=== PATIENT | male | born 1955 | race Caucasian/White ===

== ENCOUNTER 2016-10-25 22:42 | Emergency (ER) | payer OTHER ==
[~2016-10-25] VITALS: Ht 177.8 cm; Wt 87.4 kg
[~2016-10-25 22:42] MED LIST: AMOXICILLIN500 M1 PO; B-121000 MC2 PO; CIPRO500 MG PO; CYANOCOBALAM1000 MCG PO; DILAUDID4 MG PO; DOCUSATE SODIU100 MG PO; HYDROMORPHONE HC4 MG PO; IRON325 M1 PO; KEFLEX500 MG PO; LORZONE750 MG PO; LOVENOX40 MG/0.4 SC; MAGNESIUM250 MG PO; MOVANTIK25 MG PO; NEURONTIN600 MG PO; NOHOMEMEDS; NORCO 10/3251 TABLET PO; PARAFON FORTE500 MG PO; PERCOCET 5/31 TABLET PO; SENNA8.6 MG PO; TRAMADOL HCL50 MG PO; TYLENOL REGULA325 MG PO; VITAMIN B12-FO1 EACH PO; ZOFRAN4 MG PO
[2016-10-25 22:55] LABS: ADD MIUA? YES; BILIRUBIN NEGATIVE; BLOOD MODERATE; COLOR YELLOW ((YELLOW)); GLUCOSE (STRIP) NEGATIVE; KETONES NEGATIVE; LEUKOCYTES LARGE; NITRITE POSITIVE; PROTEIN (STRIP) 30; SPECIFIC GRAVITY 1.016 (1.000-1.030)
[2016-10-25 23:25] LABS: EPITHELIAL CELLS RARE; RED BLOOD CELLS 15-20 /HPF (0-5); WHITE BLOOD CELLS 40-50 /HPF (0-5)
[2016-10-25 23:26] LABS: BACTERIA 2+; CASTS NONE SEEN /LPF; CRYSTALS NONE SEEN; MUCUS NONE SEEN; UCUL ADDED? YES
[2016-10-26 00:32] LABS: HEMATOCRIT 42.2 % (38.0-50.0); MCH 32.3 PG (29.0-34.0); MCHC 35.5 G/DL (30.0-36.0); MCV 90.9 FL (86-99); RBC DIS.WIDTH-CV 12.8 % (11.8-14.6); RED BLOOD COUNT 4.64 M/uL (4.00-5.50); WHITE BLOOD COUNT 9.4 K/uL (4.1-10.2)
[2016-10-26 00:33] LABS: MEAN PLAT.VOLUME 11.6 uM^3 (9.0-12.4); PLATELET COUNT 157 K/uL (156-360)
[2016-10-26 01:01] LABS: CHLORIDE 104 mEq/L (99-109); POTASSIUM 4.1 mEq/L (3.7-5.4); SODIUM 139 mEq/L (136-147)
[2016-10-26 01:03] LABS: GLUCOSE 107 mg/dL (70-99)
[2016-10-26 01:05] LABS: ANION GAP 10 MEQ/L (2-14)
[2016-10-26 01:07] LABS: GFR ESTIMATE (CALCULATED) > 59 mL/min/
[2016-10-26 01:08] LABS: UREA NITROGEN (BUN) 18 mg/dL (9-23)
[2016-10-26] MEDS ORDERED: KEFLEX500 MG PO (01:55)
[2016-10-26 02:37] VITALS: BP 148/98
== END 2016-10-26 02:37 | disposition home or self-care (01) ==
LOC: EME 22:42
PROVIDERS: Emergency Medicine
DX: N10 Acute pyelonephritis (principal); R11.2 Nausea with vomiting, unspecified; G89.29 Other chronic pain; Z79.891 Long term (current) use of opiate analgesic; Z87.891 Personal history of nicotine dependence
CPT/HCPCS: 74176; 80048; 81003; 83605; 85027; 87077; 87086; 87186; 99281; 99284; J0696; J1885; J2270; J2405; J7030; J7050

== ENCOUNTER → 2016-10-31 | Outpatient (CLI) | payer OTHER | END | disposition home or self-care (01) | LOC: RAD 10-23 09:30 | DX: N39.0 Urinary tract infection, site not specified (principal); N12 Tubulo-interstitial nephritis, not specified as acute or chronic | CPT/HCPCS: 74177 ==

== ENCOUNTER 2017-10-04 06:26 | Emergency (ER) | payer OTHER ==
[~2017-10-04] VITALS: Ht 177.8 cm; Wt 91.7 kg
[2017-10-04 07:34] LABS: HEMATOCRIT 38.1 % (38.0-50.0); HEMOGLOBIN 13.1 G/DL (12.5-16.6); MCH 31.9 PG (29.0-34.0); MCHC 34.4 G/DL (30.0-36.0); MCV 92.7 FL (86-99); PLATELET COUNT 182 K/uL (156-360); RBC DIS.WIDTH-CV 12.4 % (11.8-14.6); RBC DIS.WIDTH-SD 42.6 % (39-53); RED BLOOD COUNT 4.11 M/uL (4.00-5.50); WHITE BLOOD COUNT 8.2 K/uL (4.1-10.2)
[2017-10-04 07:59] LABS: APPEARANCE TURBID ((CLEAR)); BILIRUBIN NEGATIVE; BLOOD LARGE; COLOR AMBER ((YELLOW)); GLUCOSE (STRIP) NEGATIVE; KETONES NEGATIVE; LEUKOCYTES MODERATE; NITRITE POSITIVE; PROTEIN (STRIP) 100; SPECIFIC GRAVITY 1.011 (1.000-1.030); UROBILINOGEN 0.2 MG/DL (0.2-1.0)
[2017-10-04] MEDS ORDERED: LEVAQUIN750 MG PO (08:15)
[2017-10-04 08:20] LABS: CHLORIDE 102 MEQ/L (99-109); GFR ESTIMATE (CALCULATED) > 59 mL/min/ (58.99-99999); GLUCOSE 112 mg/dL (70-99); POTASSIUM 4.1 MEQ/L (3.7-5.4); SODIUM 138 MEQ/L (136-147); UREA NITROGEN (BUN) 21 mg/dL (9-23)
[2017-10-04 08:31] LABS: BACTERIA 2+ /HPF; EPITHELIAL CELLS 1+ /HPF; MUCUS NONE SEEN /LPF; RED BLOOD CELLS TNTC /HPF (0-5); UCUL ADDED? YES; WHITE BLOOD CELLS TNTC /HPF (0-5)
[2017-10-04 08:34] VITALS: BP 149/97
== END 2017-10-04 08:35 | disposition home or self-care (01) ==
LOC: EME 06:26
PROVIDERS: Emergency Medicine
DX: N30.01 Acute cystitis with hematuria (principal); N10 Acute pyelonephritis; G89.29 Other chronic pain; M54.5 Low back pain; I10 Essential (primary) hypertension; Z87.891 Personal history of nicotine dependence; Z93.6 Other artificial openings of urinary tract status; Z98.84 Bariatric surgery status; Z87.442 Personal history of urinary calculi; Z85.51 Personal history of malignant neoplasm of bladder; Z90.79 Acquired absence of other genital organ(s); Z90.6 Acquired absence of other parts of urinary tract
CPT/HCPCS: 74176; 80048; 81003; 85027; 87077; 87086; 87186; 99281; 99285; J1885; J2405; J7030

== ENCOUNTER → 2017-10-31 | Outpatient (CLI) | payer OTHER ==
[~2017-10-31] MED LIST changes: +LEVAQUIN750 MG PO
== END | disposition home or self-care (01) ==
LOC: RAD 08:33
DX: N20.0 Calculus of kidney (principal); N13.30 Unspecified hydronephrosis
CPT/HCPCS: 76770

== ENCOUNTER → 2017-11-13 | Outpatient (CLI) | payer OTHER ==
[2017-11-13 08:50] LABS: HEMATOCRIT 36.6 % (38.0-50.0); HEMOGLOBIN 12.3 G/DL (12.5-16.6); MCH 30.6 PG (29.0-34.0); MCHC 33.6 G/DL (30.0-36.0); PLATELET COUNT 233 K/uL (156-360); RBC DIS.WIDTH-CV 12.1 % (11.8-14.6); RBC DIS.WIDTH-SD 40.7 % (39-53); RED BLOOD COUNT 4.02 M/uL (4.00-5.50); WHITE BLOOD COUNT 7.9 K/uL (4.1-10.2)
== END | disposition home or self-care (01) ==
LOC: OPR 07:58 → EDSTATUS 09:00 → OPR 09:00
PROVIDERS: Urology
PROC: 0TH53YZ Insertion of Other Device into Kidney, Percutaneous Approach (ICD-10-PCS; principal; 2017-11-13)
DX: N13.30 Unspecified hydronephrosis (principal)
CPT/HCPCS: 50432; 85027; 87086; C1729; C1766; C1894; J0744; J2250; J2310; J2405; J3010

== ENCOUNTER → 2017-11-19 | Outpatient (CLI) | payer OTHER | END | disposition home or self-care (01) | LOC: RAD 10:00 | DX: R31.9 Hematuria, unspecified (principal); Z93.6 Other artificial openings of urinary tract status; Z93.3 Colostomy status | CPT/HCPCS: 74150 ==

== ENCOUNTER → 2017-12-07 | Outpatient (CLI) | payer OTHER ==
[~2017-12-07] MED LIST changes: +NORCO 5/3251 TABLET PO
[2017-12-07 09:01] LABS: INTER. NORMALIZED RATIO 1.1
== END | disposition home or self-care (01) ==
LOC: OPR 08:29 → EDSTATUS 09:00 → OPR 09:00
PROVIDERS: Urology
DX: N13.5 Crossing vessel and stricture of ureter without hydronephrosis (principal); Z90.6 Acquired absence of other parts of urinary tract
CPT/HCPCS: 50434; 85610; 85730; C1725; C1766; C1769; J3010

== ENCOUNTER 2017-12-10 08:32 | Inpatient (IN) | payer OTHER ==
[~2017-12-10] VITALS: Ht 179.1 cm; Wt 86.5 kg
[2017-12-10 09:25] LABS: BASOPHIL (%) 0.8 % (0-1); BASOPHIL COUNT 0.1 K/uL (0-0.1); EOSINOPHIL (%) 8.2 % (0-5); EOSINOPHIL COUNT 0.7 K/uL (0-0.3); HEMATOCRIT 36.7 % (38.0-50.0); HEMOGLOBIN 12.5 G/DL (12.5-16.6); IMMATURE GRANULOCYTE (%) 0.4 % (0.0-0.7); LYMPHOCYTE (%) 10.5 % (15-42); LYMPHOCYTE COUNT 0.9 K/uL (1.0-2.8); MCH 31.2 PG (29.0-34.0); MCHC 34.1 G/DL (30.0-36.0); MCV 91.5 FL (86-99); MONOCYTE (%) 8.7 % (3-12); MONOCYTE COUNT 0.7 K/uL (0-0.8); NEUTROPHIL (%) 71.4 % (45-76); NEUTROPHIL COUNT 6.1 K/uL (1.8-6.4); PLATELET COUNT 229 K/uL (156-360); RBC DIS.WIDTH-CV 13.6 % (11.8-14.6); RBC DIS.WIDTH-SD 45.1 % (39-53); RED BLOOD COUNT 4.01 M/uL (4.00-5.50); WHITE BLOOD COUNT 8.6 K/uL (4.1-10.2)
[2017-12-10 09:34] LABS: ALBUMIN 3.9 g/dL (3.2-4.8); CHLORIDE 104 mEq/L (99-109); POTASSIUM 4.7 mEq/L (3.7-5.4); SODIUM 140 mEq/L (136-147)
[2017-12-10 09:36] LABS: GLUCOSE 102 mg/dL (70-99)
[2017-12-10 09:37] LABS: TOTAL PROTEIN 7.2 g/dL (6.4-8.3)
[2017-12-10 09:38] LABS: TOTAL BILIRUBIN 0.7 mg/dL (0.0-1.0)
[2017-12-10 09:40] LABS: ALKALINE PHOSPHATASE 183 IU/L (3-129); CREATININE 1.2 mg/dL (0.6-1.3); GFR ESTIMATE (CALCULATED) > 59 mL/min/ (58.99-99999)
[2017-12-10 09:41] LABS: UREA NITROGEN (BUN) 18 mg/dL (9-23)
[2017-12-10 09:42] LABS: AST (GOT) 19 IU/L (2-34)
[2017-12-10 09:43] LABS: ALT (GPT) 11 IU/L (3-49); LIPASE 33 U/L (1.0-51.0)
[2017-12-10 09:47] LABS: TROP-I INTERPRETATION NEGATIVE; TROPONIN-I < 0.01 ng/mL (0.0-0.30)
[2017-12-10 16:10] VITALS: BP 138/71
[2017-12-10 17:07] LABS: APPEARANCE SL.HAZY ((CLEAR)); BILIRUBIN NEGATIVE; BLOOD MODERATE; COLOR YELLOW ((YELLOW)); GLUCOSE (STRIP) NEGATIVE; KETONES NEGATIVE; LEUKOCYTES LARGE; NITRITE POSITIVE; PROTEIN (STRIP) 100; SPECIFIC GRAVITY 1.025 (1.000-1.030); UROBILINOGEN 0.2 MG/DL (0.2-1.0)
[2017-12-10 17:30] LABS: RED BLOOD CELLS 30-40 /HPF (0-5)
[2017-12-10 17:31] LABS: EPITHELIAL CELLS 1+ /HPF; WHITE BLOOD CELLS 15-20 /HPF (0-5)
[2017-12-10 17:32] LABS: BACTERIA 3+ /HPF; MUCUS NONE SEEN /LPF
[2017-12-10 23:26] VITALS: BP 120/65
[2017-12-11 06:04] LABS: HEMATOCRIT 33.8 % (38.0-50.0); HEMOGLOBIN 11.3 G/DL (12.5-16.6); MCH 30.4 PG (29.0-34.0); MCHC 33.4 G/DL (30.0-36.0); MCV 90.9 FL (86-99); PLATELET COUNT 208 K/uL (156-360); RBC DIS.WIDTH-CV 13.5 % (11.8-14.6); RBC DIS.WIDTH-SD 44.9 % (39-53); RED BLOOD COUNT 3.72 M/uL (4.00-5.50); WHITE BLOOD COUNT 7.6 K/uL (4.1-10.2)
[2017-12-11 06:27] LABS: CHLORIDE 104 MEQ/L (99-109); CREATININE 1.2 MG/DL (0.6-1.3); GFR ESTIMATE (CALCULATED) > 59 mL/min/ (58.99-99999); GLUCOSE 97 mg/dL (70-99); POTASSIUM 4.4 MEQ/L (3.7-5.4); SODIUM 138 MEQ/L (136-147); UREA NITROGEN (BUN) 21 mg/dL (9-23)
[2017-12-11 08:03] VITALS: BP 126/83
[2017-12-11 09:09] LABS: INTER. NORMALIZED RATIO 1.1
[2017-12-11 09:12] LABS: PTT 29.4 SEC (25-37)
[2017-12-11 14:48] VITALS: BP 138/74
[2017-12-12 00:05] VITALS: BP 131/80
[2017-12-12 06:05] LABS: HEMATOCRIT 33.6 % (38.0-50.0); HEMOGLOBIN 11.4 G/DL (12.5-16.6); MCH 31.1 PG (29.0-34.0); MCHC 33.9 G/DL (30.0-36.0); MCV 91.6 FL (86-99); PLATELET COUNT 193 K/uL (156-360); RBC DIS.WIDTH-CV 13.6 % (11.8-14.6); RBC DIS.WIDTH-SD 45.4 % (39-53); RED BLOOD COUNT 3.67 M/uL (4.00-5.50); WHITE BLOOD COUNT 7.7 K/uL (4.1-10.2)
[2017-12-12 06:31] LABS: CHLORIDE 103 MEQ/L (99-109); CREATININE 1.1 MG/DL (0.6-1.3); GFR ESTIMATE (CALCULATED) > 59 mL/min/ (58.99-99999); GLUCOSE 95 mg/dL (70-99); POTASSIUM 4.5 MEQ/L (3.7-5.4); SODIUM 138 MEQ/L (136-147); UREA NITROGEN (BUN) 18 mg/dL (9-23)
[2017-12-12 07:30] VITALS: BP 131/85
[2017-12-12] MEDS ORDERED: ZOFRAN4 MG PO (08:14)
[2017-12-12 16:50] VITALS: BP 127/85
== END 2017-12-12 19:25 | disposition home or self-care (01) | DRG 436 ==
LOC: EME 08:32 → EDOF 13:52 → 5EAST 13:52 → ENRESERV 13:59 → 5EAST 16:07 → ENPENDDIS 12-12 → 5EAST 12-12 19:25
PROVIDERS: Emergency Medicine; Internal Medicine
PROC: 0FB23ZX Excision of Left Lobe Liver, Percutaneous Approach, Diagnostic (ICD-10-PCS; principal; 2017-12-11)
DX: C78.7 Secondary malignant neoplasm of liver and intrahepatic bile duct (principal); C67.9 Malignant neoplasm of bladder, unspecified; C77.9 Secondary and unspecified malignant neoplasm of lymph node, unspecified; N20.0 Calculus of kidney; N13.5 Crossing vessel and stricture of ureter without hydronephrosis; E11.9 Type 2 diabetes mellitus without complications; G89.29 Other chronic pain; I10 Essential (primary) hypertension; Z90.79 Acquired absence of other genital organ(s); Z90.6 Acquired absence of other parts of urinary tract; Z87.891 Personal history of nicotine dependence; Z87.442 Personal history of urinary calculi; Z85.51 Personal history of malignant neoplasm of bladder; Z93.6 Other artificial openings of urinary tract status; Z98.84 Bariatric surgery status; Z81.1 Family history of alcohol abuse and dependence; Z80.0 Family history of malignant neoplasm of digestive organs; R31.0 Gross hematuria; R16.0 Hepatomegaly, not elsewhere classified; R59.0 Localized enlarged lymph nodes
CPT/HCPCS: 74022; 74177; 77012; 78582; 80048; 80053; 81003; 83690; 83880; 84484; 85025; 85027; 85379; 85610; 85730; 87086; 88305; 88341 TC; 88342 TC; 93005; 99281; 99285; A9540; A9567; J1644; J2250; J2270; J2310; J2405; J3010; J7030

== ENCOUNTER 2017-12-20 20:25 | Inpatient (IN) | payer OTHER ==
[~2017-12-20] VITALS: Ht 179.1 cm; Wt 88.7 kg
[2017-12-20 21:05] LABS: HEMATOCRIT 36.7 % (38.0-50.0); HEMOGLOBIN 12.8 G/DL (12.5-16.6); MCH 31.1 PG (29.0-34.0); MCHC 34.9 G/DL (30.0-36.0); PLATELET COUNT 235 K/uL (156-360); RBC DIS.WIDTH-CV 13.1 % (11.8-14.6); RED BLOOD COUNT 4.12 M/uL (4.00-5.50); WHITE BLOOD COUNT 18.1 K/uL (4.1-10.2)
[2017-12-20 21:07] LABS: MCV 89.1 FL (86-99)
[2017-12-20 21:14] LABS: CHLORIDE 102 mEq/L (99-109); POTASSIUM 4.2 mEq/L (3.7-5.4); SODIUM 137 mEq/L (136-147)
[2017-12-20 21:16] LABS: GLUCOSE 140 mg/dL (70-99)
[2017-12-20 21:20] LABS: GFR ESTIMATE (CALCULATED) 41 mL/min/ (58.99-99999)
[2017-12-20 21:21] LABS: CREATININE 1.8 mg/dL (0.6-1.3); UREA NITROGEN (BUN) 26 mg/dL (9-23)
[2017-12-20 21:28] LABS: TROP-I INTERPRETATION NEGATIVE; TROPONIN-I 0.12 ng/mL (0.0-0.30)
[2017-12-20 23:00] LABS: BASOPHIL (%) 0.4 % (0-1); BASOPHIL COUNT 0.1 K/uL (0-0.1); EOSINOPHIL (%) 0.3 % (0-5); EOSINOPHIL COUNT 0.1 K/uL (0-0.3); IMMATURE GRANULOCYTE (%) 0.8 % (0.0-0.7); LYMPHOCYTE (%) 1.4 % (15-42); LYMPHOCYTE COUNT 0.3 K/uL (1.0-2.8); MONOCYTE (%) 7.5 % (3-12); MONOCYTE COUNT 1.4 K/uL (0-0.8); NEUTROPHIL (%) 89.6 % (45-76); NEUTROPHIL COUNT 16.2 K/uL (1.8-6.4)
[2017-12-21] MEDS ORDERED: ZOFRAN4 MG PO (00:01)
[2017-12-21] MEDS ORDERED: IRON325 M1 PO (00:02)
[2017-12-21] MEDS ORDERED: PROTONIX40 MG PO (00:02)
[2017-12-21] MEDS ORDERED: CYANOCOBALAM1000 MCG PO (00:02)
[2017-12-21 00:25] LABS: INTER. NORMALIZED RATIO 1.2
[2017-12-21 03:18] VITALS: BP 109/62
[2017-12-21 04:08] LABS: TROP-I INTERPRETATION NEGATIVE; TROPONIN-I 0.08 ng/mL (0.0-0.30)
[2017-12-21 07:44] VITALS: BP 97/65
[2017-12-21 10:06] LABS: TROP-I INTERPRETATION NEGATIVE; TROPONIN-I 0.05 ng/mL (0.0-0.30)
[2017-12-21 10:46] VITALS: BP 97/63
[2017-12-21 12:11] LABS: CHLORIDE 104 MEQ/L (99-109); CREATININE 1.7 MG/DL (0.6-1.3); GFR ESTIMATE (CALCULATED) 44 mL/min/ (58.99-99999); POTASSIUM 4.7 MEQ/L (3.7-5.4); SODIUM 137 MEQ/L (136-147); UREA NITROGEN (BUN) 28 mg/dL (9-23)
[2017-12-21 12:12] LABS: GLUCOSE 93 mg/dL (70-99)
[2017-12-21 13:49] LABS: APPEARANCE SL.HAZY ((CLEAR)); BILIRUBIN NEGATIVE; BLOOD LARGE; COLOR YELLOW ((YELLOW)); GLUCOSE (STRIP) NEGATIVE; KETONES NEGATIVE; LEUKOCYTES LARGE; NITRITE NEGATIVE; PROTEIN (STRIP) 30; SPECIFIC GRAVITY 1.012 (1.000-1.030); UROBILINOGEN 0.2 MG/DL (0.2-1.0)
[2017-12-21 14:07] LABS: EPITHELIAL CELLS RARE /HPF; MUCUS NONE SEEN /LPF; RED BLOOD CELLS TNTC /HPF (0-5); WHITE BLOOD CELLS TNTC /HPF (0-5)
[2017-12-21 14:08] LABS: BACTERIA RARE /HPF; UCUL ADDED? YES
[2017-12-21 16:43] VITALS: BP 130/59
[2017-12-21 19:00] VITALS: BP 107/65
[2017-12-22] VITALS (7 sets, daily range): BP systolic 105–134; BP diastolic 64–74
[2017-12-22 06:27] LABS: BASOPHIL (%) 0.4 % (0-1); EOSINOPHIL (%) 2.7 % (0-5); EOSINOPHIL COUNT 0.3 K/uL (0-0.3); HEMATOCRIT 29.2 % (38.0-50.0); HEMOGLOBIN 9.4 G/DL (12.5-16.6); IMMATURE GRANULOCYTE (%) 0.4 % (0.0-0.7); LYMPHOCYTE (%) 5.2 % (15-42); LYMPHOCYTE COUNT 0.5 K/uL (1.0-2.8); MCH 29.9 PG (29.0-34.0); MCHC 32.2 G/DL (30.0-36.0); MONOCYTE (%) 8.8 % (3-12); MONOCYTE COUNT 0.8 K/uL (0-0.8); NEUTROPHIL (%) 82.5 % (45-76); NEUTROPHIL COUNT 7.5 K/uL (1.8-6.4); RBC DIS.WIDTH-CV 13.7 % (11.8-14.6); RBC DIS.WIDTH-SD 47.4 % (39-53); RED BLOOD COUNT 3.14 M/uL (4.00-5.50); WHITE BLOOD COUNT 9.1 K/uL (4.1-10.2)
[2017-12-22 06:38] LABS: CHLORIDE 105 MEQ/L (99-109); CREATININE 1.7 MG/DL (0.6-1.3); GFR ESTIMATE (CALCULATED) 44 mL/min/ (58.99-99999); GLUCOSE 104 mg/dL (70-99); POTASSIUM 4.7 MEQ/L (3.7-5.4); SODIUM 138 MEQ/L (136-147); UREA NITROGEN (BUN) 24 mg/dL (9-23)
[2017-12-22 06:53] LABS: PLAT.SUFFICIENCY ADEQUATE
[2017-12-22 06:54] LABS: PLATELET COUNT 153 K/uL (156-360)
[2017-12-22 09:32] LABS: HEMATOCRIT 28.1 % (38.0-50.0); HEMOGLOBIN 9.2 G/DL (12.5-16.6); MCH 30.5 PG (29.0-34.0); MCHC 32.7 G/DL (30.0-36.0); PLATELET COUNT 142 K/uL (156-360); RBC DIS.WIDTH-CV 13.7 % (11.8-14.6); RBC DIS.WIDTH-SD 46.8 % (39-53); RED BLOOD COUNT 3.02 M/uL (4.00-5.50); WHITE BLOOD COUNT 8.3 K/uL (4.1-10.2)
[2017-12-22 10:10] LABS: CHLORIDE 104 MEQ/L (99-109); CREATININE 1.5 MG/DL (0.6-1.3); GFR ESTIMATE (CALCULATED) 50 mL/min/ (58.99-99999); GLUCOSE 128 mg/dL (70-99); POTASSIUM 3.8 MEQ/L (3.7-5.4); SODIUM 136 MEQ/L (136-147); UREA NITROGEN (BUN) 23 mg/dL (9-23)
[2017-12-23 00:07] VITALS: BP 110/62
[2017-12-23 04:13] VITALS: BP 98/57
[2017-12-23 07:50] VITALS: BP 123/79
[2017-12-23 12:15] VITALS: BP 113/77
[2017-12-23 16:16] VITALS: BP 120/80
[2017-12-24 00:06] VITALS: BP 116/75
[2017-12-24 03:16] VITALS: BP 117/73
[2017-12-24 11:53] VITALS: BP 121/67
[2017-12-24 20:24] VITALS: BP 111/73
[2017-12-25 00:35] VITALS: BP 128/77
[2017-12-25 03:52] VITALS: BP 126/73
[2017-12-25 06:05] LABS: CREATININE 1.2 MG/DL (0.6-1.3); GFR ESTIMATE (CALCULATED) > 59 mL/min/ (58.99-99999)
[2017-12-25 09:15] VITALS: BP 123/80
[2017-12-25 12:10] VITALS: BP 131/71
[2017-12-25] MEDS ORDERED: AUGMENTIN875 MG PO (14:32)
[2017-12-25] MEDS ORDERED: BACTRIM,SEPT1 TABLET PO (14:32)
[2017-12-25] MEDS ORDERED: OXYCONTIN10 MG PO (15:37)
== END 2017-12-25 16:15 | disposition home or self-care (01) | DRG 699 ==
LOC: EME 20:25 → EDOF 12-21 02:08 → ENRESERV 12-21 02:16 → 5WEST 12-21 03:03
PROVIDERS: Hospitalist; Internal Medicine; Physician Assistant
DX: N99.521 Infection of incontinent external stoma of urinary tract (principal); N17.9 Acute kidney failure, unspecified; N13.6 Pyonephrosis; R78.81 Bacteremia; C67.9 Malignant neoplasm of bladder, unspecified; C78.7 Secondary malignant neoplasm of liver and intrahepatic bile duct; B95.7 Other staphylococcus as the cause of diseases classified elsewhere; Z87.891 Personal history of nicotine dependence; G89.4 Chronic pain syndrome; Z98.84 Bariatric surgery status; Z87.442 Personal history of urinary calculi; B96.7 Clostridium perfringens [C. perfringens] as the cause of diseases classified elsewhere
CPT/HCPCS: 36415; 50433; 71046; 71275; 74018; 74176; 80048; 80048 91; 80053; 80202; 81003; 82565; 82948; 83605; 84484; 85025; 85027; 85379; 85610; 85730; 87040; 87076; 87077; 87086; 87186; 87502; 87801; 93005; 99281; 99285; C1769; J0290; J1170; J1644; J2405; J3010; J3370; J7030; J7050

== ENCOUNTER → 2018-01-14 | Outpatient (CLI) | payer OTHER ==
[~2018-01-14] VITALS: Ht 179.1 cm; Wt 85.7 kg
[~2018-01-14] MED LIST changes: +AUGMENTIN875 MG PO; +BACTRIM,SEPT1 TABLET PO; +FLOMAX0.4 MG PO; +OXYCONTIN10 MG PO; +PROTONIX40 MG PO
== END | disposition home or self-care (01) ==
LOC: AMB 05:50
DX: N20.1 Calculus of ureter (principal); Z85.51 Personal history of malignant neoplasm of bladder; Z90.6 Acquired absence of other parts of urinary tract; Z96.0 Presence of urogenital implants; Z93.6 Other artificial openings of urinary tract status
CPT/HCPCS: 74019; 74021; J0690; J1580; J2250; J2405; J7050

== ENCOUNTER 2018-01-18 07:34 | Day surgery (SDC) | payer OTHER ==
[~2018-01-18] VITALS: Ht 177.8 cm; Wt 83.9 kg
[2018-01-18 08:28] VITALS: BP 131/80
[2018-01-18 13:10] VITALS: BP 136/78
[2018-01-18 13:30] VITALS: BP 132/72
== END 2018-01-18 13:40 | disposition home or self-care (01) ==
LOC: SDC 07:34
DX: N13.5 Crossing vessel and stricture of ureter without hydronephrosis (principal); C67.9 Malignant neoplasm of bladder, unspecified; C78.7 Secondary malignant neoplasm of liver and intrahepatic bile duct; I73.9 Peripheral vascular disease, unspecified; I10 Essential (primary) hypertension; Z93.6 Other artificial openings of urinary tract status; Z87.891 Personal history of nicotine dependence
CPT/HCPCS: C1769; C2625; J0690; J1100; J1580; J2405; J7050; J7643

== ENCOUNTER 2018-01-24 08:39 | Inpatient (IN) | payer OTHER ==
[~2018-01-24] VITALS: Ht 179.1 cm; Wt 84.7 kg
[~2018-01-24 08:39] MED LIST changes: -NORCO 5/3251 TABLET PO; +VICODIN HP 10-1 EACH PO
[2018-01-24 09:39] LABS: HEMATOCRIT 29.5 % (38.0-50.0); HEMOGLOBIN 9.7 G/DL (12.5-16.6); MCH 30.2 PG (29.0-34.0); MCHC 32.9 G/DL (30.0-36.0); MCV 91.9 FL (86-99); RBC DIS.WIDTH-CV 14.6 % (11.8-14.6); RBC DIS.WIDTH-SD 45.1 % (39-53); RED BLOOD COUNT 3.21 M/uL (4.00-5.50)
[2018-01-24 09:40] LABS: PLATELET COUNT 362 K/uL (156-360)
[2018-01-24 09:47] LABS: ALBUMIN 3.5 g/dL (3.2-4.8); CHLORIDE 102 mEq/L (99-109); SODIUM 135 mEq/L (136-147)
[2018-01-24 09:50] LABS: TOTAL PROTEIN 6.5 g/dL (6.4-8.3)
[2018-01-24 09:52] LABS: TOTAL BILIRUBIN 0.5 mg/dL (0.0-1.0)
[2018-01-24 09:53] LABS: ALKALINE PHOSPHATASE 111 IU/L (3-129)
[2018-01-24 09:55] LABS: AST (GOT) 83 IU/L (2-34)
[2018-01-24 09:56] LABS: ALT (GPT) 65 IU/L (3-49)
[2018-01-24 09:58] LABS: APPEARANCE CLOUDY ((CLEAR)); BILIRUBIN NEGATIVE; BLOOD MODERATE; COLOR YELLOW ((YELLOW)); GLUCOSE (STRIP) NEGATIVE; KETONES NEGATIVE; LEUKOCYTES LARGE; NITRITE POSITIVE; PROTEIN (STRIP) 100; SPECIFIC GRAVITY 1.014 (1.000-1.030); UROBILINOGEN 0.2 MG/DL (0.2-1.0)
[2018-01-24 10:01] LABS: CREATININE 1.6 mg/dL (0.6-1.3); GFR ESTIMATE (CALCULATED) 47 mL/min/ (58.99-99999); GLUCOSE 145 mg/dL (70-99); POTASSIUM 4.8 mEq/L (3.7-5.4); UREA NITROGEN (BUN) 31 mg/dL (9-23)
[2018-01-24 10:18] LABS: ABS NEUTROPHIL COUNT 5.7; ANISOCYTOSIS 1+; EOSINOPHIL ABS CT 0; LYMPHOCYTES 4.3 % (15.0-45.0); MACROCYTES 1+; METAMYELOCYTES 0.9 %; MICROCYTOSIS 2+; PLAT.SUFFICIENCY INCREASED; SEG.NEUTROPHILS 67.8 % (46.0-76.0)
[2018-01-24 10:32] LABS: BACTERIA 3+ /HPF
[2018-01-24 10:34] LABS: UCUL ADDED? YES
[2018-01-24 10:35] LABS: EPITHELIAL CELLS NONE SEEN /HPF
[2018-01-24 10:42] LABS: MUCUS NONE SEEN /LPF
[2018-01-24 10:45] LABS: WHITE BLOOD CELLS TNTC /HPF (0-5)
[2018-01-24] MEDS ORDERED: COMPAZINE10 MG PO (16:14)
[2018-01-24 18:02] VITALS: BP 190/94
[2018-01-24 19:54] VITALS: BP 106/53
[2018-01-24 23:39] VITALS: BP 96/62
[2018-01-25 04:18] VITALS: BP 116/76
[2018-01-25 05:57] LABS: CHLORIDE 104 MEQ/L (99-109); CREATININE 1.4 MG/DL (0.6-1.3); GFR ESTIMATE (CALCULATED) 55 mL/min/ (58.99-99999); GLUCOSE 112 mg/dL (70-99); POTASSIUM 4.3 MEQ/L (3.7-5.4); SODIUM 134 MEQ/L (136-147); UREA NITROGEN (BUN) 33 mg/dL (9-23)
[2018-01-25 06:13] LABS: HEMOGLOBIN 7.9 G/DL (12.5-16.6); MCH 30.3 PG (29.0-34.0); MCHC 32.9 G/DL (30.0-36.0); RBC DIS.WIDTH-CV 14.8 % (11.8-14.6); RBC DIS.WIDTH-SD 46.5 % (39-53); RED BLOOD COUNT 2.61 M/uL (4.00-5.50); WHITE BLOOD COUNT 2.8 K/uL (4.1-10.2)
[2018-01-25 06:18] LABS: PLAT.SUFFICIENCY ADEQUATE
[2018-01-25 06:21] LABS: PLATELET COUNT 229 K/uL (156-360)
[2018-01-25 09:15] VITALS: BP 129/83
[2018-01-25 11:20] VITALS: BP 106/71
[2018-01-25 14:55] VITALS: BP 111/76
[2018-01-25 19:08] LABS: HEMATOCRIT 24.4 % (38.0-50.0); HEMOGLOBIN 7.9 G/DL (12.5-16.6); MCH 29.9 PG (29.0-34.0); MCHC 32.4 G/DL (30.0-36.0); MCV 92.4 FL (86-99); PLATELET COUNT 210 K/uL (156-360); RBC DIS.WIDTH-CV 14.9 % (11.8-14.6); RBC DIS.WIDTH-SD 47.4 % (39-53); RED BLOOD COUNT 2.64 M/uL (4.00-5.50); WHITE BLOOD COUNT 2.7 K/uL (4.1-10.2)
[2018-01-25 19:30] VITALS: BP 99/51
[2018-01-25 23:31] VITALS: BP 101/56
[2018-01-26 08:05] VITALS: BP 136/85
[2018-01-26 10:06] LABS: HEMATOCRIT 28.3 % (38.0-50.0); HEMOGLOBIN 9.3 G/DL (12.5-16.6); MCHC 32.9 G/DL (30.0-36.0); MCV 91.3 FL (86-99); PLATELET COUNT 252 K/uL (156-360); RBC DIS.WIDTH-CV 14.9 % (11.8-14.6); RBC DIS.WIDTH-SD 46.8 % (39-53); WHITE BLOOD COUNT 3.5 K/uL (4.1-10.2)
[2018-01-26 10:22] LABS: CHLORIDE 106 MEQ/L (99-109); CREATININE 1.3 MG/DL (0.6-1.3); GFR ESTIMATE (CALCULATED) > 59 mL/min/ (58.99-99999); GLUCOSE 165 mg/dL (70-99); SODIUM 136 MEQ/L (136-147); UREA NITROGEN (BUN) 24 mg/dL (9-23)
[2018-01-26 10:26] LABS: ABS NEUTROPHIL COUNT 3.1; ANISOCYTOSIS 1+; ATYPICAL LYMPHOCYTE 0.9 %; EOSINOPHIL ABS CT 0.1; EOSINOPHILS 2.6 % (0-5.0); LYMPHOCYTES 8.8 % (15.0-45.0); PLAT.SUFFICIENCY ADEQUATE; SEG.NEUTROPHILS 87.7 % (46.0-76.0)
[2018-01-26 11:24] VITALS: BP 118/79
[2018-01-26 14:52] VITALS: BP 121/71
[2018-01-26 19:00] VITALS: BP 128/78
[2018-01-26 23:51] VITALS: BP 131/80
[2018-01-27 05:29] LABS: HEMATOCRIT 23.8 % (38.0-50.0); HEMOGLOBIN 7.9 G/DL (12.5-16.6); MCH 30.4 PG (29.0-34.0); MCHC 33.2 G/DL (30.0-36.0); MCV 91.5 FL (86-99); PLATELET COUNT 246 K/uL (156-360); RBC DIS.WIDTH-CV 14.7 % (11.8-14.6); RBC DIS.WIDTH-SD 47.6 % (39-53); WHITE BLOOD COUNT 3.4 K/uL (4.1-10.2)
[2018-01-27 06:10] LABS: UREA NITROGEN (BUN) 17 mg/dL (9-23)
[2018-01-27 06:11] LABS: CHLORIDE 107 MEQ/L (99-109); CREATININE 1.1 MG/DL (0.6-1.3); GFR ESTIMATE (CALCULATED) > 59 mL/min/ (58.99-99999); POTASSIUM 3.7 MEQ/L (3.7-5.4); SODIUM 136 MEQ/L (136-147)
[2018-01-27 06:17] LABS: BASOPHIL (%) 0.9 % (0-1); EOSINOPHIL (%) 0.6 % (0-5); IMMATURE GRANULOCYTE (%) 0.9 % (0.0-0.7); LYMPHOCYTE (%) 15.4 % (15-42); LYMPHOCYTE COUNT 0.5 K/uL (1.0-2.8); MONOCYTE COUNT 0.3 K/uL (0-0.8); NEUTROPHIL (%) 74.2 % (45-76); NEUTROPHIL COUNT 2.5 K/uL (1.8-6.4)
[2018-01-27 06:18] LABS: GLUCOSE 120 mg/dL (70-99)
[2018-01-27 08:15] VITALS: BP 127/84
[2018-01-27] MEDS ORDERED: CEFTIN500 MG PO (11:33)
[2018-01-27] MEDS ORDERED: TAMSULOSIN HCL0.4 MG PO (11:33)
== END 2018-01-27 12:06 | disposition home or self-care (01) | DRG 690 ==
LOC: EME 08:39 → EDOF 15:06 → ENRESERV 15:12 → 4SOUTH 16:57 → EDOF 16:57 → 4SOUTH 17:57
PROVIDERS: Emergency Medicine; Internal Medicine; Physician Assistant
DX: N13.6 Pyonephrosis (principal); N17.9 Acute kidney failure, unspecified; C67.9 Malignant neoplasm of bladder, unspecified; C78.7 Secondary malignant neoplasm of liver and intrahepatic bile duct; D64.9 Anemia, unspecified; E11.9 Type 2 diabetes mellitus without complications; I10 Essential (primary) hypertension; R19.7 Diarrhea, unspecified; Z80.0 Family history of malignant neoplasm of digestive organs; Z87.442 Personal history of urinary calculi; Z87.891 Personal history of nicotine dependence; Z93.6 Other artificial openings of urinary tract status; Z98.84 Bariatric surgery status
CPT/HCPCS: 71046; 74019; 74176; 80048; 80053; 80202; 81003; 85025; 85027; 87077; 87086; 87186; 93005; 96375; 96413; 96417; 99281; 99285; J0696; J1100; J1200; J1885; J2405; J2469; J3370; J7030; J7050; J9045; J9201

== ENCOUNTER 2018-02-07 08:18 | Day surgery (SDC) | payer OTHER ==
[~2018-02-07] VITALS: Ht 179.1 cm; Wt 83.0 kg
[~2018-02-07 08:18] MED LIST changes: +CEFTIN500 MG PO; +COMPAZINE10 MG PO; +HYDROCODON-ACE1 EAC9 PO; +TAMSULOSIN HCL0.4 MG PO
== END 2018-02-07 10:35 | disposition home or self-care (01) ==
LOC: CATH 08:18
DX: Z45.2 Encounter for adjustment and management of vascular access device (principal); I87.8 Other specified disorders of veins; C67.9 Malignant neoplasm of bladder, unspecified; C78.7 Secondary malignant neoplasm of liver and intrahepatic bile duct; Z87.891 Personal history of nicotine dependence
CPT/HCPCS: C1788; C1894; J0690; J1644; J2250; J3010; S0020

== ENCOUNTER → 2018-04-08 | Outpatient (CLI) | payer OTHER ==
[2018-04-08 09:29] LABS: INTER. NORMALIZED RATIO 1.1
[2018-04-08 09:31] LABS: PTT 30.8 SEC (25-37)
== END | disposition home or self-care (01) ==
LOC: OPR 08:29 → EDSTATUS 09:00
PROVIDERS: Internal Medicine
PROC: 0FB03ZX Excision of Liver, Percutaneous Approach, Diagnostic (ICD-10-PCS; principal; 2018-04-08)
DX: C78.7 Secondary malignant neoplasm of liver and intrahepatic bile duct (principal); C67.9 Malignant neoplasm of bladder, unspecified; K91.841 Postprocedural hemorrhage of a digestive system organ or structure following other procedure; Z87.891 Personal history of nicotine dependence; I70.203 Unspecified atherosclerosis of native arteries of extremities, bilateral legs; G89.29 Other chronic pain; M54.5 Low back pain; K21.9 Gastro-esophageal reflux disease without esophagitis
CPT/HCPCS: 77012; 85610; 85730; 88305; 88341 TC; 88342 TC; J1170; J3010

== ENCOUNTER 2018-05-03 08:14 | Day surgery (SDC) | payer OTHER ==
[~2018-05-03] VITALS: Ht 177.8 cm; Wt 78.9 kg
[~2018-05-03 08:14] MED LIST changes: +CHLORZOXAZONE500 MG PO
[2018-05-03 08:49] VITALS: BP 119/77
[2018-05-03 11:30] VITALS: BP 130/71
[2018-05-03 12:26] VITALS: BP 114/64
== END 2018-05-03 12:28 | disposition home or self-care (01) ==
LOC: SDC 08:14
DX: N13.5 Crossing vessel and stricture of ureter without hydronephrosis (principal); C79.19 Secondary malignant neoplasm of other urinary organs; Z85.51 Personal history of malignant neoplasm of bladder; Z87.442 Personal history of urinary calculi; Z90.6 Acquired absence of other parts of urinary tract; Z90.79 Acquired absence of other genital organ(s); Z92.21 Personal history of antineoplastic chemotherapy; C78.7 Secondary malignant neoplasm of liver and intrahepatic bile duct; I70.203 Unspecified atherosclerosis of native arteries of extremities, bilateral legs; N28.9 Disorder of kidney and ureter, unspecified; F32.9 Major depressive disorder, single episode, unspecified; D62 Acute posthemorrhagic anemia; K21.9 Gastro-esophageal reflux disease without esophagitis; M19.90 Unspecified osteoarthritis, unspecified site; L40.9 Psoriasis, unspecified; Z87.891 Personal history of nicotine dependence; Z98.84 Bariatric surgery status
CPT/HCPCS: 74018; 76000; C2625; J0696; J2250; J3010; J7120

== ENCOUNTER 2018-05-27 09:52 | Emergency (ER) | payer OTHER ==
[~2018-05-27] VITALS: Ht 177.8 cm; Wt 79.8 kg
[~2018-05-27 09:52] MED LIST changes: +MORPHABOND ER30 MG PO
[2018-05-27 10:34] LABS: HEMATOCRIT 28.6 % (38.0-50.0); HEMOGLOBIN 9.5 G/DL (12.5-16.6); MCH 30.3 PG (29.0-34.0); MCHC 33.2 G/DL (30.0-36.0); PLATELET COUNT 331 K/uL (156-360); RBC DIS.WIDTH-SD 49.4 % (39-53); RED BLOOD COUNT 3.14 M/uL (4.00-5.50); WHITE BLOOD COUNT 20.8 K/uL (4.1-10.2)
[2018-05-27 10:37] LABS: MCV 91.1 FL (86-99)
[2018-05-27 10:44] LABS: ALBUMIN 2.6 g/dL (3.2-4.8); CHLORIDE 99 mEq/L (99-109); POTASSIUM 4.2 mEq/L (3.7-5.4); SODIUM 133 mEq/L (136-147)
[2018-05-27 10:46] LABS: GLUCOSE 108 mg/dL (70-99)
[2018-05-27 10:48] LABS: TOTAL BILIRUBIN 1.5 mg/dL (0.0-1.0)
[2018-05-27 10:50] LABS: ALKALINE PHOSPHATASE 443 IU/L (3-129); CREATININE 1.2 mg/dL (0.6-1.3); GFR ESTIMATE (CALCULATED) > 59 mL/min/ (58.99-99999)
[2018-05-27 10:51] LABS: UREA NITROGEN (BUN) 22 mg/dL (9-23)
[2018-05-27 10:52] LABS: AST (GOT) 50 IU/L (2-34)
[2018-05-27 10:53] LABS: ALT (GPT) 20 IU/L (3-49)
[2018-05-27 11:52] LABS: APPEARANCE CLOUDY ((CLEAR)); BILIRUBIN NEGATIVE; BLOOD MODERATE; COLOR AMBER ((YELLOW)); GLUCOSE (STRIP) NEGATIVE; KETONES NEGATIVE; LEUKOCYTES LARGE; NITRITE POSITIVE; PROTEIN (STRIP) 30; SPECIFIC GRAVITY 1.017 (1.000-1.030)
[2018-05-27 13:07] LABS: LIPASE 15 U/L (1.0-51.0)
[2018-05-27 14:06] LABS: BACTERIA 2+ /HPF; EPITHELIAL CELLS RARE /HPF; MUCUS NONE SEEN /LPF; UCUL ADDED? YES; WHITE BLOOD CELLS 40-50 /HPF (0-5)
[2018-05-27] MEDS ORDERED: LEVAQUIN500 MG PO (14:14)
[2018-05-27 15:14] VITALS: BP 118/79
== END 2018-05-27 15:36 | disposition home or self-care (01) ==
LOC: EME 09:52
DX: N39.0 Urinary tract infection, site not specified (principal); C78.7 Secondary malignant neoplasm of liver and intrahepatic bile duct; C67.9 Malignant neoplasm of bladder, unspecified; E11.9 Type 2 diabetes mellitus without complications; I10 Essential (primary) hypertension; Z93.6 Other artificial openings of urinary tract status; Z92.21 Personal history of antineoplastic chemotherapy; Z87.442 Personal history of urinary calculi; Z87.891 Personal history of nicotine dependence; Z98.84 Bariatric surgery status
CPT/HCPCS: 74177; 80053; 81003; 83690; 85027; 87077; 87086; 87186; J0696; J2270; J7030